=== PATIENT | female | born 1980 | race Caucasian/White ===

== ENCOUNTER → 2016-03-08 | Outpatient (CLI) | payer OTHER ==
--- NOTE | 2016-03-08 16:02 | US ---
March 08, 2016 Dear [facility] Providers, Thank you for allowing us to see your patient regarding anatomy and AMA. As you know she is a 35 yea r-old 1, para 0. Her due date is 07/13/16 which is based on LMP. Her current gestational age based on this dating is 21 weeks 6 days. She had normal NIPT and Trio. Number of fetuses: 1 Placental location: anterior Cord Insertion: Central presentation: variable Cervix: 4.0 cm MVP: 5.8 cm The adnexa were evaluated. No pathology was seen. Right ovary seen Left ovary seen Measurements: Biparietal diameter: 54 mm 21 weeks, 4 days Head circumference: 202 mm 22 weeks, 3 days Abdominal circumference: 170 mm 22 weeks, 1 days Femur length: 36 mm 21 weeks, 4 days Humerus length: 36 mm 22 weeks, 3 days Transcerebellar diameter: 23 mm 21 weeks, 4 days Average ultrasound age: 22 weeks, 2 days Estimated weight: 458 gm weight percentile: 45 % ANATOMY Upper extremities: Normal Lower extremities: Normal Supratentorial brain: Normal Lateral ventricle: 5.1 mm Posterior fossa: Normal Cisterna Magna: 5.1 mm Spine: Normal in transverse views, limited sagittal views Nuchal fold: 5.5 mm Face: Normal nose, lip, profile, alveolar ridge Heart: Normal rate, rhythm, axis, 4 chamber view, LVOT, RVOT, IVS Stomach: Normal Diaphragm Normal Umbilical cord insertion: Normal Right kidney: Normal Left kidney: Normal Bladder: Normal Number of cord vessels: Three. Impression: This is a 35 year-old, 1, para 0 at 21 weeks, 6 days gestation. 1. SIUP with biometry cw ga of 21 weeks. NL MVP. No anatomic abnormalities noted. 2. AMA - normal NIPT, I reviewed the detection rate and chromosomes for NIPT and the option of amnioc entesis as well. She declined amniocentesis today, understanding the limitations of NIPT and ultrasou nd in detection of aneuploidy and other syndromes. Thank you for allowing me to see your patient. Approximately 15 minutes was spent with the patient a nd 15 was spent discussing her issues. Linda Loaiza MD Diagnosis Division of Maternal Medicine Department of Obstetrics and Gynecology [facility]
--- NOTE | 2016-03-08 17:56 | US ---
Complete Detailed Obstetrical Sonography Clinical History: 35-year-old female with advanced maternal age, presenting for anatomic screen ing and biometry. Technique: A curvilinear 5 MHz transducer was used to sonographically evaluate the fetus and the plac enta. M-mode Doppler was used. Dr. Linda Loaiza was present. Cine clips were acquired through the he art and the outflow tracts. Comparison Study: None currently available. LMP: October 07, 2015, indicating an age of 21 weeks 6 days, and an estimated date of delivery of July 13, 2016. Findings: There is a single viable intrauterine gestation with the fetus variable in presentation. T he placenta is anteriorly situated, with no previa. The maternal cervical length is normal, measuring 4.0 cm. There is a normal three-vessel cord and a central cord insertion. The amniotic fluid volume is appropriate, with a maximal vertical pocket of 5.8 cm. The maternal right ovary measures 2.9 x 2.2 x 2.4 cm, and contains a 1.0 x 1.1 x 0.9 cm corpus luteum cyst. The left ovary measures 2.0 x 2.0 x 2.3 cm. The anatomic survey reveals a normal appearance to the supra- and infratentorial structures. Th e lateral ventricular diameter is 5.1 mm, the cisterna magna is 5.1 mm, and the nuchal fold is 5.5 mm . The spine appears normal in transverse planes, and there is limited assessment in the sagittal plan e. The nasal-labial anatomy, sagittal facial profile, and the alveolar ridge are normal. The na linda bone measures 6.3 mm. There is a four-chambered heart with right and left ventricular outflow tra cts and interventricular septum. The stomach, diaphragm, right and left kidneys, urinary bladder, and the upper and the lower extremities are identified. biometry is as follows: The biparietal diameter is 54 mm, corresponding to an age of 22 weeks 4 days +/- 1 week 6 days, which is at the 72nd percentile. The head circumference is 202 mm, corresponding to an age of 22 weeks 3 days +/- 1 week 4 days, which is at the 58th percentile. The abdominal circumference is 170 mm, corresponding to an age of 22 weeks 1 day +/- 2 weeks 1 day, w hich is at the 48th percentile. The femur length is 36 mm, corresponding to an age of 21 weeks 4 days +/- 1 week 6 days, which is at the 29th percentile. The humeral length is 36 mm, corresponding to an age of 22 weeks 3 days, for a composite gestational age of 22 weeks 2 days. The estimated weight is 458 grams +/- 67 grams, which is 1 pound 0 ounces +/- 2 ounces, which i s at the 45th percentile. The head circumference to abdominal circumference ratio is normal, measuring 1.18. The femur length t o biparietal diameter ratio is 67%, and the femur length to abdominal circumference ratio is 21%. Impression: There is a single viable intrauterine gestation with no overt structural anomaly h aving biometry concordant with menstrual dating. The amniotic fluid volume is appropriate. Please also refer to Dr. Loaiza's separate assessments and specific recommendations for follow up.
== END ==
LOC: FIMAGING 14:35
PROVIDERS: ATTEND Advanced Practice Midwife
DX: Z36 Encounter for antenatal screening of mother (principal); Z3A.21 21 weeks gestation of pregnancy; O09.522 Supervision of elderly multigravida, second trimester

== ENCOUNTER 2016-07-19 00:06 | Inpatient (IN) | payer OTHER ==
[2016-07-19] MEDS: LR 1,000 ML IV PRN ×2 (00:35→01:32)
--- NOTE | 2016-07-19 00:38 | OBPROG ---
OBG Progress Note Assessment/Plan: Assessment:cat2 contractions q3 having difficulty coping with the pain request for epidural pushing for 2h at the center possible OP baby Plan:epidural consult with dr. Cuevas for POC 07/19/16 00:36 Subjective: I am requesting pain relief. Epidural please - SVE Dilation (cm): 10 Effacement (%): 100 Station: +1 Current Contraction Pattern: Regular FHR (bpm): 150 FHR Pattern Variability: Moderate FHR Category: 2 Membranes: SROM - Physical Exam General Appearance: WD/WN, alert, no apparent distress Respiratory: chest non-tender, lungs clear, normal breath sounds Cardiac/Chest: regular rate, rhythm Abdomen: normal bowel sounds Membranes: SROM Extremities: normal range of motion, Supa's sign (negative), other (dtr1+ bilaterally) DTR- Lower Extremities: Knee (R): 1+, Knee (L): 1+ Skin: normal color, warm/dry Neuro/Psych: no motor/sensory deficits, alert, normal mood/affect, oriented x 3 ICD10 Worksheet Patient Problems: Problems Problem Status Onset term postdates center transfer Acute
[2016-07-19] MEDS ORDERED: OLIVE OIL 118 ML BTL MISC PRN (00:39)
[2016-07-19] MEDS ORDERED: EPSOM SALT 454 GM TP PRN (00:39)
[2016-07-19] MEDS ORDERED: LIDOCAINE 1% 30 ML SDV SC PRN (00:39)
[2016-07-19] MEDS ORDERED: OXYTOCIN/RINGERS LACTATE 1,000 ML IV PRN (00:39)
[2016-07-19] MEDS ORDERED: TERBUTALINE SULFATE 1 MG/ML VIAL IV PRN (00:39)
[2016-07-19] MEDS ORDERED: LIDOCAINE 2% 100 MG/5 ML SYR ONE (00:59)
[2016-07-19] MEDS ORDERED: fentaNYL 100 MCG/2 ML INJ ONE (00:59)
[2016-07-19] MEDS ORDERED: fentaNYL 2MCG/ML/BUP 0.1% RTU 100 ML BAG EP ONE (01:00)
[2016-07-19 01:11] LABS: ADD DIFF? YES; ADD MORPH? NO; ADD SCAN? NO; ATYPICAL LYMPHOCYTE FLAG 0 (0-99); FRAGMENT RBC FLAG 0 (0-99); HEMATOCRIT 36.8 % (38.0-47.0); HEMOGLOBIN 12.7 g/dL (12.6-16.3); LEFT SHIFT FLG 20 (0-99); LIPEMIA HEMOLYSIS FLAG 90 (0-99); MEAN CELL HEMOGLOBIN 32.2 pg (27.9-34.1); MEAN CELL HEMOGLOBIN CONCENTR. 34.5 g/dL (32.4-36.7); MEAN CELL VOLUME 93.4 fL (81.5-99.8); MEAN PLATELET VOLUME 11.3 fL (8.7-11.7); PLATELET CLUMPS FLAG 0 (0-99); PLATELET COUNT 266 10^3/uL (150-400); RED BLOOD CELL COUNT 3.94 10^6/uL (4.18-5.33); RED CELL DISTRIBUTION WIDTH 13.3 % (11.5-15.2)
[2016-07-19] MEDS: LR 500 ML IV SCH ×2 (01:32→04:03)
[2016-07-19 01:39] LABS: PLATELET ESTIMATE ADEQUATE (ADEQ)
[2016-07-19] MEDS ORDERED: PHENYLEPHRINE HCL 100 MCG/ML SYR ONE (01:45)
[2016-07-19] MEDS ORDERED: fentaNYL 2MCG/ML/BUP 0.1% RTU 100 ML EP SCH (02:00)
[2016-07-19] MEDS ORDERED: LIDOCAINE 1% 30 ML SDV ONE (02:21)
[2016-07-19] MEDS ORDERED: AMMONIA AROMATIC 1 EACH AMP IH ONE (02:21)
[2016-07-19] MEDS ORDERED: OLIVE OIL 118 ML BTL ONE (02:21)
[2016-07-19] MEDS ORDERED: TERBUTALINE SULFATE 1 MG/ML VIAL ONE (02:22)
[2016-07-19] MEDS ORDERED: OXYTOCIN 10 UNIT/ML VIAL ONE (02:22)
[2016-07-19] MEDS ORDERED: MISOPROSTOL 200 MCG TAB ONE (02:22)
--- NOTE | 2016-07-19 02:43 | OBPROG ---
OBG Progress Note Assessment/Plan: Assessment: IUP at 40w6d protracted pushing compelling ctr transfer TEOFILO given and significant improvement in pain from ctxns and thrombosed hemorrhoid GBS - , clear fluid decels noted after TEOFILO with slightly low BP and FSE placed Plan: will cont to labor down, add pit prn ctxns >3-4 min apart 07/19/16 02:40 Subjective: pt much more comf after TEOFILO. still feeling pressure with ctxns but manageable. ok with pit if needed Objective: 07/19/16 00:35 Patient ABO/Rh A POSITIVE 07/19/16 00:35 - SVE Dilation (cm): 10 Effacement (%): 100 Station: +2 (noted at time FSE applied) Current Contraction Pattern: Regular (q 3-5 min ) FHR (bpm): 150 FHR Pattern Variability: Moderate FHR Category: 2 (has had variable decels and now early decels) Membranes: SROM Amniotic Fluid Color: Clear ICD10 Worksheet Patient Problems: Problems Problem Status Onset term postdates center transfer Acute
--- NOTE | 2016-07-19 02:46 | GHP ---
[f rep st] HISTORY AND PHYSICAL DATE OF ADMISSION: 07/19/2016 HISTORY OF PRESENT ILLNESS: The patient is a 35-year-old, 1, para 0, with an EDC of 07/13/2016, which gives her a gestational age of 40 and 5/7 weeks , who [facility] complete, 10 cm, 100% effaced, +1 station , pushing x2 hours, with minimal descent. Category 2 tracing with moderate variability, no accels. Contractions q.2-3 minutes, with routine care throughout through [facility]. Began emmett 0600, harder stronger contractions 1400. Rom clear fluid 199907/19/2015 MEDICAL HISTORY: Benign. SURGICAL HISTORY: Benign. FAMILY HISTORY: Noncontributory. SOCIAL HISTORY: The patient is . Significant other is Ady. LAB WORK: The patient is A positive, rubella immune, GBS negative. ALLERGIES: Patient is allergic to penicillin and erythromycin. The patient has used ketorolac during this for migraines, despite advice otherwise. Patient had a history of thrombosed hemorrhoids with this . Consult with Dr. Pop. No procedures. OTHER MEDICAL HISTORY: Patient has had anxiety, depression, severe migraines. Patient was a smoker in the first 2 weeks of the before she quit. SOCIAL HISTORY: Patient was a smoker until the . No drug use. PHYSICAL EXAMINATION: Patient is awake, alert, oriented x3. LUNGS: Clear bilaterally. Bowel sounds are positive in all 4 quadrants. DTRs are 1+ bilaterally. Homans sign is negative bilaterally. Contractions are every 2-3 minutes. Exam was patient was 10, 100, +1 station, cephalic, positive caput, positive molding, minimal descent, 2 hours of pushing. Request for epidural for pain relief. The patient is GBS negative. Dates were confirmed with LMP and 20-week ultrasound. Growth was 45th percentile, anterior placenta. PLAN OF CARE: 1. Epidural for pain relief. 2. GBS negative. 3. Consult Dr. Cuevas on plan of care. On way into hospital. /[id number]/MODL MTDD
[2016-07-19] MEDS: OXYTOCIN/RINGERS LACTATE 500 ML IV SCH ×2 (02:59→03:00)
--- NOTE | 2016-07-19 04:56 | OBPROG ---
OBG Progress Note Assessment/Plan: Assessment:cat2 contractions 3-5 minutes apart comfortable with epidural in and out cath copious amounts of urine before pushing begun request for epidural pushing begun +3 descent of head with pushing Plan:pushing well making good progress 07/19/16 00:36 07/19/16 04:54 Objective: 07/19/16 00:35 Patient ABO/Rh A POSITIVE 07/19/16 00:35 - SVE Dilation (cm): 10 Effacement (%): 100 Station: +3 Current Contraction Pattern: Regular FHR (bpm): 135 FHR Pattern Variability: Moderate FHR Category: 2 Amniotic Fluid Color: Clear ICD10 Worksheet Patient Problems: Problems Problem Status Onset term postdates center transfer Acute
[2016-07-19] MEDS ORDERED: ACETAMINOPHEN 325 MG TAB PO PRN (06:15)
[2016-07-19] MEDS ORDERED: POLYETHYLENE GLYCOL 3350 17 GM PKT PO PRN (06:16)
[2016-07-19] MEDS ORDERED: MAGNESIUM HYDROXIDE 30 ML UDCUP PO PRN (06:16)
[2016-07-19] MEDS ORDERED: BISACODYL 10 MG SUPP PR PRN (06:16)
[2016-07-19] MEDS ORDERED: LACTULOSE 20 GM/30 ML UDCUP PO PRN (06:16)
--- NOTE | 2016-07-19 06:19 | OBPROC ---
- Labor and Delivery Onset of Contractions Date: 07/18/16 Onset of Contractions Time: 14:00 Onset of Contractions Type: Spontaneous Rupture of Membranes Date: 07/18/16 Rupture of Membranes Time: 20:00 Rupture of Membranes Type: Spontaneous Amniotic Fluid Color: Clear Dilation Complete Time: 21:45 Delivery Type: Spontaneous Placenta Delivery Date: 07/19/16 Placenta Delivery Time: 05:55 Episiotomy/Laceration: 1st Degree, Perineal (bilateral) Repair: Other (Specify) (none needed) EBL: 300 - Medications Labor Augmentation/Induction Meds Used: Pitocin Labor Augmentation/Induction Indication: Other (Specify) (protracted second stage) Anesthesia: Epidural - [place] Info Infant A Delivery Date: 07/19/16 Delivery Time: 05:49 Sex of Infant: Male Score (1 Min): 8 Score (5 Min): 9
[2016-07-19] MEDS: IBUPROFEN 600 MG TAB PO PRN ×3 (06:30→19:05)
[2016-07-19] MEDS: SENNOSIDES/DOCUSATE SODIUM TAB PO SCH (12:39)
[2016-07-19 21:33] VITALS: RESP 18
[2016-07-20] MEDS: IBUPROFEN 600 MG TAB PO PRN ×4 (01:08→23:07)
--- NOTE | 2016-07-20 10:53 | OBPROG ---
OBG Progress Note Assessment/Plan: Assessment: 35 y/o PPD #1 s/p transfer from [facility] for pain control and arrest of descent in second stage Plan: Baby under bili lights today, will continue PPC. Colace BID, Ibuprofen, support. Hopefully d/c home tomorrow. 07/20/16 10:51 Subjective: Pt is doing well this am. She has some cramping and pelvic pain with ambulating , min lochia, voiding without difficulty. Breast feeding is going well. Baby has elevated bili today and they are starting light therapy. She will stay today and hopefully they will both be d/c home tomorrow. Objective: 07/19/16 00:35 Patient ABO/Rh A POSITIVE 07/19/16 00:35 Temp Pulse Resp BP Pulse Ox 36.9 C 100 18 129/81 H 94 07/19/16 20:00 07/19/16 20:00 07/19/16 20:00 07/19/16 20:00 07/19/16 20:00 Uterine Position/Fundal Height: Umbilicus -2 Uterine Tone: Firm - Physical Exam General Appearance: WD/WN, alert, no apparent distress Neck: non-tender, full range of motion, supple Respiratory: chest non-tender, lungs clear, normal breath sounds Cardiac/Chest: regular rate, rhythm Abdomen: normal bowel sounds Extremities: swelling (no), Supa's sign (neg) ICD10 Worksheet Patient Problems: Problems Problem Status Onset (spontaneous vaginal delivery) Acute
[2016-07-20] MEDS: SENNOSIDES/DOCUSATE SODIUM TAB PO SCH ×3 (16:48→22:19)
[2016-07-20 19:27] VITALS: O2SAT 95
[2016-07-21] MEDS: IBUPROFEN 600 MG TAB PO PRN ×2 (07:20→13:15)
[2016-07-21] MEDS: SENNOSIDES/DOCUSATE SODIUM TAB PO SCH (07:20)
[2016-07-21 11:28] VITALS: BP 126/72; PULSE 98; TEMP 98
--- NOTE | 2016-07-21 12:17 | SOAPPROG ---
SOAP Progress Note Assessment/Plan: Assessment: PPD 2 s/p after ctr transfer Plan: D/C to [facility] 07/19/16 02:40 07/21/16 12:10 Subjective: Pt doing well. BF is going well. Bld has decreased quite a bit. has f/u appt - with [place] [facility] in a week. Baby needing bili light therapy and pt to [facility] status today. Objective: Vital Signs Temp Pulse Resp BP Pulse Ox 36.6 C 98 18 126/72 H 95 07/21/16 08:00 07/21/16 08:00 07/21/16 08:00 07/21/16 08:00 07/21/16 08:00 Laboratory Results 07/19/16 00:35 07/20/16 07/21/16 07/22/16 05:59 05:59 05:59 Intake Total 3500 Output Total 300 Balance 3200 Physical Exam - Physical Exam General Appearance: WD/WN Abdomen: non-tender, soft, other (FF at umb -2) Pelvic Exam: vaginal bleeding (normal lochia) Extremities: non-tender, pedal edema (minimal) Neuro/Psych: normal mood/affect ICD10 Worksheet Patient Problems: Problems Problem Status Onset (spontaneous vaginal delivery) Acute
--- NOTE | 2016-07-21 12:30 | SOAPPROG ---
SOAP Progress Note Assessment/Plan: Assessment: Feeling well. Taking PO, voiding, up and out of bed. No evidence for LAST, no residual numbness/weakness. Plan: Continue routing cares. 07/21/16 12:30 Subjective: S/P labor epidural. No complaints today. Objective: Vital Signs Temp Pulse Resp BP Pulse Ox 36.6 C 98 18 126/72 H 95 07/21/16 08:00 07/21/16 08:00 07/21/16 08:00 07/21/16 08:00 07/21/16 08:00 Laboratory Results 07/19/16 00:35 07/20/16 07/21/16 07/22/16 05:59 05:59 05:59 Intake Total 3500 Output Total 300 Balance 3200 ICD10 Worksheet Patient Problems: Problems Problem Status Onset (spontaneous vaginal delivery) Acute
== END 2016-07-21 18:15 | disposition home or self-care (01) | DRG 775 ==
LOC: FLD 00:06 → FOB 11:23
PROVIDERS: ADMIT Advanced Practice Midwife; ATTEND Advanced Practice Midwife
PROC: 10E0XZZ Delivery of Products of Conception, External Approach (ICD-10-PCS; principal; 2016-07-19)
DX: O62.1 Secondary uterine inertia (principal); Z37.0 Single live birth; Z3A.40 40 weeks gestation of pregnancy; O70.0 First degree perineal laceration during delivery
CPT/HCPCS: J2001; J2370; J2590; J3010; J3105